=== PATIENT | male | born 1975 | race Hispanic/Latino ===

== ENCOUNTER 2018-05-07 07:25 | Day surgery (SDC) | payer MEDICAID ==
[2018-05-07] MEDS ORDERED: LACTATED RINGERS 1,000 ML ONE (08:55)
[2018-05-07] MEDS ORDERED: ZOFRAN IV PRN (09:00)
[2018-05-07] MEDS ORDERED: VERSED IV NR (09:00)
[2018-05-07] MEDS ORDERED: DEMEROL IV PRN (09:00)
[2018-05-07] MEDS ORDERED: DILAUDID IV PRN (09:00)
[2018-05-07] MEDS ORDERED: LACTATED RINGERS 1,000 ML IV SCH ×2 (09:00→11:00)
--- NOTE | 2018-05-07 09:02 | Anesthesia Day of Surgery ---
Anesthesia Day of Surgery - Day of Surgery Patient Examined: Yes Patient H&P Reviewed: Yes Patient is NPO: Yes
--- NOTE | 2018-05-07 09:02 | Anesthesia Consultation ---
Anesthesia Consult and Med Hx Date of service: 05/07/18 - Airway Anesthetic Teeth Evaluation: Good ROM Head & Neck: Adequate Mental/Hyoid Distance: Adequate Mallampati Class: Class I Intubation Access Assessment: Good - Pulmonary Exam CTA: Yes - Cardiac Exam Cardiac Exam: RRR - Pre-Operative Health Status ASA Pre-Surgery Classification: ASA2 Proposed Anesthetic Plan: General - Pulmonary Hx Smoking: Yes (1 PPD X 20 YRS) Hx Sleep Apnea: No (JOSE MANUEL PRE SCREEN LOW RISK) - Cardiovascular System Hx Hypertension: No - Central Nervous System Hx Back Pain: Yes (CHRONIC BACK PAIN TO LEFT LEG) - Other Systems Hx Cancer: No
[2018-05-07] MEDS ORDERED: LEVAQUIN 500MG/100ML 500 MG/100 ML BAG IV NR (09:30)
[2018-05-07] MEDS ORDERED: MARCAINE 0.25% INFILTRATI ONE (10:49)
[2018-05-07] MEDS ORDERED: DECADRON ONE (10:59)
[2018-05-07] MEDS ORDERED: DIPRIVAN 10 MG/ML IV ONE ×2 (10:59→11:31)
[2018-05-07] MEDS ORDERED: ZOFRAN ONE (10:59)
[2018-05-07] MEDS ORDERED: SUBLIMAZE ONE (10:59)
[2018-05-07] MEDS ORDERED: DILAUDID ONE (11:32)
[2018-05-07] MEDS ORDERED: VERSED ONE (11:34)
[2018-05-07] MEDS ORDERED: KETALAR ONE (11:38)
[2018-05-07] MEDS ORDERED: NACL 0.9% IR ONE ×2 (12:13→12:35)
--- NOTE | 2018-05-07 12:14 | Post Operative Note ---
Date of procedure: 05/07/18 Pre-op diagnosis: fractured penis hemeatocele Post-op diagnosis: same Findings: hematocel Procedure: scrotal exp evac and drainafge Anesthesia: LUL Surgeon: KERRI SALINAS Estimated blood loss: minimal Pathology: list (sac clots) Specimen disposition: to lab Condition: stable Disposition: PACU
[2018-05-07] MEDS ORDERED: ROBINUL ONE (12:16)
--- NOTE | 2018-05-07 12:16 | Discharge Summary ---
Short Stay Discharge Plan Activity: other (no strainign ) Weight Bearing Status: Full Weight Bearing Diet: low fat, low salt Wound: open to air, other (dressing changes ) Special Instructions: other (keep dry ) Durable Medical Equipment Needed Upon Discharge: other (change dressing 1-2 x a day ice x 24 hrs ) Follow up with: SHARI WARD MD [Primary Care Provider] - 7 Days KERRI SALINAS MD [Staff Physician] - 7 Days
--- NOTE | 2018-05-07 13:41 | Operative Report ---
PREOPERATIVE DIAGNOSIS: Fractured penis with a very large hematocele. POSTOPERATIVE DIAGNOSIS: Fractured penis with a very large hematocele with huge granulation tissue and very thick hematocele sac. PROCEDURE: Scrotal exploration, evacuation of hematocele with trimming of the sac and drainage. SURGEON: Florentino Mills MD ANESTHESIA: General. FINDINGS: This gentleman approximately 6 weeks ago had a fractured penis and refused surgery. We tried to get an MRI to see if there was any residual fracture, but that was denied. It is very unlikely at this point because he has had relations. He has had good erections. He now presents for treatment. He had previously blood going up Ebenezer's fascia and entire scrotal hematoma. DESCRIPTION OF PROCEDURE: The patient was brought to the operating room and placed on the operating table. Following induction of anesthesia, placed in the supine position, prepped and draped in usual sterile fashion. A horizontal scrotal incision was carried out, carried through the skin, very thickened fascial layers. Small vessels were cauterized or tied if needed. There was increased vascularity as expected from this chronically inflamed sac. We freed up the sac anteriorly and posteriorly, but it was adherent to the tunica vaginalis, especially on the left side, we did not want to damage the testicle or the cord. Once we freed it up on both sides as much as possible, we opened it up and we had approximately 500-600 or more filled up the kidney basin of clots. Clots were evacuated out and we used the measuring clerk to clean out the granulomatous sac. A good amount of the sac was trimmed posteriorly where it was adherent to the tunica vaginalis and the corpora. We did not disturb. We did not want to open up the urethra or opened up the previous healed corporotomy where the fracture was. The patient tolerated the procedure well. Wound was irrigated. Minimal blood loss. A drain was placed. After we oversewed the edges of the sac, which were oozing and superficial fascia was closed with 3-0 and 2-0 chromic, skin with 3-0 and 2-0 chromic, brought to recovery room in stable condition. JOB# [id number] FELI/CHE
[2018-05-07] MEDS ORDERED: TORADOL IV ONE (14:00)
[2018-05-07] MEDS ORDERED: NORCO 5/325 PO SCH (14:00)
[2018-05-07] MEDS ORDERED: ZOFRAN ODT PO SCH (14:10)
[2018-05-07 16:20] VITALS: BP 138/95
== END 2018-05-07 14:30 | disposition home or self-care (01) ==
LOC: OR 07:25
PROVIDERS: ATTEND Urology
DX: N50.1 Vascular disorders of male genital organs (principal); N50.82 Scrotal pain; F17.210 Nicotine dependence, cigarettes, uncomplicated; Z88.0 Allergy status to penicillin; Z79.899 Other long term (current) drug therapy
CPT/HCPCS: 54700; 55110; 88302; A4217; J1100; J1170; J1885; J1956; J2250; J2405; J2704; J3010; J7120; Q0162

== ENCOUNTER 2022-01-11 09:47 | Outpatient (CLI) | payer MEDICAID ==
--- NOTE | 2022-01-12 10:33 | Magnetic Resonance Report ---
MRI LEFT SHOULDER WITHOUT CONTRAST INDICATION / CLINICAL INFORMATION: M25.512 PAIN IN LEFT SHOULDER. TECHNIQUE: Multiplanar, multisequence MR images were obtained. No contrast used. COMPARISON: None available. FINDINGS: SUPRASPINATUS: Tendinosis with bursal sided partial tear involving about 50% of the tendon thickness. 5 mm of retraction. No full-thickness tear. No muscle atrophy. INFRASPINATUS: No significant abnormality. SUBSCAPULARIS: No significant abnormality. BICEPS TENDON, LONG HEAD: No significant abnormality. GLENOID LABRUM: No significant abnormality. ARTICULAR CARTILAGE: No significant abnormality. JOINT SPACE / CAPSULE: No significant abnormality. ACROMION / A.C. JOINT: Type III acromion with mild encroachment on the rotator cuff. SUBACROMIAL/SUBDELTOID SPACE: Mild edema in the subacromial space. BONES: No significant bone marrow edema. No fracture. No osseous lesion. SOFT TISSUES: No significant abnormality. ADDITIONAL FINDINGS: None. IMPRESSION: 1. Supraspinatus tendinosis with bursal sided partial tear. 2. Type III acromion with mild encroachment on the rotator cuff. Signer Name: Michelle Charles MD Signed: 01/12/2022 10:28 AM Workstation Name: [id number]
== END 2022-01-11 09:48 | disposition home or self-care (01) ==
LOC: MRI 09:47
PROVIDERS: ATTEND Orthopaedic Surgery
DX: M75.102 Unspecified rotator cuff tear or rupture of left shoulder, not specified as traumatic (principal); M75.42 Impingement syndrome of left shoulder; M77.8 Other enthesopathies, not elsewhere classified